=== PATIENT | female | born 1985 ===

== ENCOUNTER 2020-08-27 00:44 | Emergency (ER) | payer SELFPAY ==
--- NOTE | 2020-08-27 00:50 | NUR ---
NO ANSWER WHEN CALLED FOR TRIAGE.
--- NOTE | 2020-08-27 01:01 | NUR ---
NO ANSWER AGAIN WHEN CALLED FOR TRIAGE.
--- NOTE | 2020-08-27 01:22 | NUR ---
PT NOT IN LOBBY WHEN CALLED FOR TRIAGE 3RD TIME. LWBS.
== END 2020-08-27 01:29 | disposition left against medical advice (07) ==
LOC: ED 01:01
DX: M54.9 Dorsalgia, unspecified (principal); R31.9 Hematuria, unspecified; Z53.21 Procedure and treatment not carried out due to patient leaving prior to being seen by health care provider